=== PATIENT | female | born 1985 | race Caucasian/White ===

== ENCOUNTER 2019-12-29 10:07 | Outpatient (CLI) | payer BC, SELFPAY ==
[2019-12-31 00:52] LABS: Patient Race White; SARS-CoV-2 RNA Undetected (Undetected); SARS-CoV-2 Specimen Source Nasal
== END 2019-12-29 10:27 ==
PROVIDERS: PCP Nurse Practitioner Adult Health; Visit Provider Nurse Practitioner Adult Health
DX: Z11.59 Encounter for screening for other viral diseases (principal); Z20.828 Contact with and (suspected) exposure to other viral communicable diseases
CPT/HCPCS: U0003

== ENCOUNTER 2020-01-02 09:19 | Outpatient (CLI) | payer BC, SELFPAY ==
[2020-01-04 22:31] LABS: Patient Race White; SARS-CoV-2 RNA Undetected (Undetected); SARS-CoV-2 Specimen Source Nasal
== END 2020-01-02 09:39 ==
PROVIDERS: PCP Nurse Practitioner Adult Health; Visit Provider Nurse Practitioner Adult Health
DX: Z11.59 Encounter for screening for other viral diseases (principal)
CPT/HCPCS: U0003

== ENCOUNTER 2020-02-27 01:34 | Outpatient (CLI) | payer BC, SELFPAY ==
[2020-02-27 09:05] LABS: HCT 39.3 % (36.0-46.0); HGB 13.3 g/dL (11.2-15.7); MCH 31.1 pg (27.0-33.0); MCHC 33.8 % (32.0-36.0); MCV 91.8 fL (80-95); MPV 10.4 fL (8.0-11.0); Platelet Count 246 10^3/uL (130-400); RBC 4.28 10^6/uL (3.93-5.22); RDW 11.3 % (11.7-14.6); RDW-SD 38.2 fL; WBC 5.81 10^3/uL (4.4-10.8)
[2020-02-27 10:01] LABS: Anion Gap 8.4 mmol/L (3-11); BUN 10 mg/dL (7-18); CO2 27.6 mmol/L (21.0-32.0); CREATININE 0.72 mg/dL (0.55-1.02); Calcium 8.5 mg/dL (8.5-10.1); Calculated LDL 119 mg/dL (<100); Chloride 103 mmol/L (98-107); Cholesterol 203 mg/dL (<200); Glucose 76 mg/dL (74-106); HDL Cholesterol 53 mg/dL (40-60); Potassium 3.8 mmol/L (3.5-5.1); Sodium 139 mmol/L (136-145); Triglyceride 157 mg/dL (<150)
[2020-03-01 13:21] LABS: IgA 274 mg/dL (85-499); Interpretation (See Note)
== END 2020-02-27 01:54 ==
PROVIDERS: PCP Nurse Practitioner Adult Health; Visit Provider Nurse Practitioner Adult Health
DX: K62.5 Hemorrhage of anus and rectum (principal); Z13.220 Encounter for screening for lipoid disorders; Z12.11 Encounter for screening for malignant neoplasm of colon
CPT/HCPCS: 36415; 80048; 80061; 82784; 83516; 85027

== ENCOUNTER 2020-07-19 09:02 | Outpatient (REF) | payer BC, SELFPAY ==
--- NOTE | 2020-07-19 09:00 | PAPFT_PTH ---
PATIENT: Natali Chou LOC: N U#:[id number] AGE/SX: 35/F ROOM: RE07/19/[address]: ROSSY Reyes : 1985 BED: DIS: 07/19/2020 SPEC #: [id number] RECD: 07/19/20 12:36 STATUS: GIOVANNI REBessy #: [id number] JAMI: 07/19/20 09:[address]: Yolette Hussein DEPT: [facility] Cytology RECD BY: Stephanie Jeffrey ENTERED: 07/19/20 12:36 SP TYPE: PAPFT ÓSCAR DR: Maine Hunter APRN Tissues: 1 - CX/ENDOCX FOR PAP SMEARS Procedures: PAP THIN PREP/UVM Screening HPV DNA PROBE Comments: [id number]
== END 2020-07-19 09:03 | disposition home or self-care (01) ==
LOC: LBN 09:02
PROVIDERS: PCP Nurse Practitioner Adult Health; Visit Provider Nurse Practitioner Family
DX: Z12.4 Encounter for screening for malignant neoplasm of cervix (principal); Z11.51 Encounter for screening for human papillomavirus (HPV)
CPT/HCPCS: 88142; 87624

== ENCOUNTER 2022-07-25 03:30 | Outpatient (CLI) | payer BC, SELFPAY ==
[2022-07-25 13:12] LABS: Abs Immature Grans 0.01 10^3/uL (0.0-0.06); Absolute Basophil Count 0.05 10^3/uL (0.0-0.2); Absolute Lymphocyte Count 2.35 10^3/uL (1.2-3.4); Absolute Monocyte Count 0.44 10^3/uL (0.1-0.8); Absolute Neutrophil Count 3.28 10^3/uL (1.2-6.7); Basophils % 0.8; Eosinophils % 1.6; HCT 39.9 % (36.0-46.0); HGB 13.6 g/dL (11.2-15.7); Immature Grans % 0.2; Lymphocytes % 37.7; MCH 30.8 pg (27.0-33.0); MCHC 34.1 % (32.0-36.0); MCV 91 fL (80-95); MPV 10.5 fL (8.0-11.0); Monocytes % 7.1; Neutrophils % 52.6; Platelet Count 305 10^3/uL (130-400); RBC 4.41 10^6/uL (3.93-5.22); RDW 11.6 % (11.7-14.6); RDW-SD 38.6 fL; WBC 6.23 10^3/uL (4.4-10.8)
[2022-07-25 13:43] LABS: ALT 23 U/L (14-59); AST 16 U/L (15-37); Albumin 3.7 g/dL (3.4-5.0); Alkaline Phosphatase 81 U/L (46-116); Anion Gap 8.6 mmol/L (3-11); BUN 10 mg/dL (7-18); Bilirubin, Total 0.4 mg/dL (0.2-1.0); CO2 26.4 mmol/L (21.0-32.0); CREATININE 0.9 mg/dL (0.55-1.02); Chloride 105 mmol/L (98-107); Estimated GFR 84.44 (mL/min/1.73m2); Glucose 79 mg/dL (74-106); Potassium 4.5 mmol/L (3.5-5.1); Sodium 140 mmol/L (136-145)
== END 2022-07-25 03:31 | disposition home or self-care (01) ==
LOC: LBO 03:30
PROVIDERS: PCP Nurse Practitioner Adult Health; Referring Provider Nurse Practitioner Adult Health; Visit Provider Nurse Practitioner Adult Health
DX: K62.5 Hemorrhage of anus and rectum (principal)
CPT/HCPCS: 36415; 80053; 85025

== ENCOUNTER 2022-08-21 08:31 | Day surgery (SDC) | payer BC, SELFPAY ==
--- NOTE | 2022-08-20 13:58 | W.PM.DSUDISC ---
Date of service: 08/21/22 Time of Service: 10:16 Discharge Plan Disposition Patient Disposition: Home Condition: Good Discharge Details Reason For Visit: colonoscopy Attending Provider: Everette Riddle Primary Care Provider: Maine Hunter Home Meds and New Rx's Prescriptions: Continued levonorgestrel-ethinyl estrad [Kurvelo (28)] 0.15-0.03 mg tablet See Rx Instructions .ROUTE .COMPLEX Qty: 84 3RF Dose Instruction: TAKE 1 TABLET BY MOUTH DAILY Rx Instructions: TAKE 1 TABLET BY MOUTH DAILY Daily Multiple 1 EACH tablet 1 ea PO DAILY Discontinued bisacodyl [Dulcolax (bisacodyl)] 5 mg tablet,delayed release (DR/EC) 5 mg PO ONCE Qty: 4 0RF Rx Instructions: Colonoscopy Bowel Prep- Per Instructions polyethylene glycol 3350 17 gram/dose powder 238 g PO ONCE Qty: 238 0RF Rx Instructions: Colonoscopy Bowel Prep- Per Instructions Discharge Instructions Instructions: Hemorrhoids (GEN) Additional Instructions: Natali, we were able to complete your colonoscopy today without any difficulty at all. The quality of your prep was excellent. You have very mild internal hemorrhoids at this point, mostly involving the right posterior column. At this point, I do not think that banding of these will be beneficial. As you probably already know, symptomatic hemorrhoids can come and go with time. If you start to experience more bleeding, please let me know, and we can attempt banding again at that point. I provided some general information here regarding hemorrhoid disease, and some basic strategies in terms of taking care of it. Maintaining a diet that is rich in fiber, and staying well-hydrated are probably the best 2 strategies. The goal is to have soft bulky bowel movements, and avoid prolonged times on the toilet. Like we talked about before the procedure, I also performed random biopsies along the length of your large intestine to rule out other sources of colonic bleeding. We will take a week or 2 for them to get me the results, and I will be in touch at that point. 1. If tolerated, consume a soft, low fiber diet for 1-2 days. 2[address] Do not drive, drink alcohol, operate machinery, make critical decisions, or do activities that require coordination or balance for 24 hours. 3. Because air was put into your colon during the procedure, expelling air from your rectum (passing gas or farting) is normal. 4. You may not have a bowel movement for 1-3 days because of the colonoscopy prep. This is normal. 5. Go directly to the emergency room if you notice any of the following: Develop chills (warm to touch), or if you have a thermometer and your temperature is above 101 Difficulty breathing or difficultly swallowing Persistent vomiting Severe abdominal pain, other than gas cramps Severe chest pain Black, tarry stools Any bleeding ? exceeding one tablespoon 6. Call your physician if the site where your intravenous was started becomes red, swollen, painful, and warm to touch. 7. Your physician has reviewed your pre-procedure medications. Please continue to take those medications as previously ordered. You will be given specific information/education regarding any changes to your medications before leaving. Stand Alone Forms: Anesthesia Discharge InstMichelle Swanson (DSU) Activity:: Activity as Tolerated Diet:: As Tolerated Discharge Orders Discharge Orders: Discharge Order (Routine); Ordered 08/20/22 Ordered By: Everette Riddle DS: Diagnosis Discharge Diagnosis (1) Bright red blood per rectum: Status: Acute Asessment and Plan: Minimal internal hemorrhoids at this point, that are not amenable to banding. Diagnostic colonoscopy otherwise grossly negative. Biopsies obtained.
--- NOTE | 2022-08-20 14:00 | W.COLOREPORT ---
Date of service: 08/21/22 Time of Service: 10:20 Colonoscopy Report Date of procedure: 08/21/22 Pre-op diagnosis general: Diagnostic colonoscopy Post-op diagnosis procedure note: other (Grade 1 internal hemorrhoids) Procedure: Colonoscopy Surgeon: Everette Riddle Anesthesia Type: General:No Airway Estimated blood loss (mL): 0 Pathology: other (Random biopsies of the colon and rectum) Complications: None Disposition: same day Indications: aNtali is a 37 year old woman whith several years of hematochezia Prep: Miralax/Dulcolax Procedure Start Time: 09:41 Procedure End Time: 09:56 Retraction Time: 9 Findings: Grade 1 internal hemorrhoids of the right posterior column Procedure Description: After the induction of monitored anesthetic care, and with the patient in left lateral decubitus position, I began by performing an external anorectal exam.? Perineum and skin were normal, as was the anal verge.? This was normal.? Next, I performed a digital rectal exam.? I did not appreciate any abnormal findings.? Next, I advanced a colonoscope into the rectal vault.? I performed retroflexion.? There is a small internal hemorrhoid in the right posterior column.? Using insufflation, I then advanced the colonoscope beyond the rectal folds and into the sigmoid colon before advancing towards the cecum.? The quality of the prep was excellent.? The scope was noted to be in the cecum by identification of the ileocecal valve and appendiceal orifice.? I then began withdrawing the colonoscope using repeated irrigation as necessary for full evaluation of the colonic mucosa. ?Once the scope was withdrawn to the level of the rectum, great care was taken to examine portions of the rectal folds.? I did perform random biopsies of the cecum, ascending transverse descending and sigmoid colons, as well as the rectum to rule out microscopic colitis. I saw no evidence of pathology that would support a diagnosis of Crohn's disease or ulcerative colitis. Finally, the scope was withdrawn. Next, using a fiberoptic lit anoscope, I examined the internal hemorrhoid columns once again. As mentioned above, there was really minimal internal hemorrhoid disease at this point. There was one small hemorrhoid in the right posterior column. I do not think this was a good candidate for hemorrhoid banding. I removed the anoscope and the patient was brought to the same-day surgery recovery unit as the anesthetic wore off. ?The findings and instructions were shared with the patient prior to discharge.
[2022-08-21 08:43] VITALS: BP 128/87; PULSE 105; RESP 17; TEMP 36.9; O2SAT 96
[2022-08-21] MEDS: Lactated Ringers 1,000 ML 80 ML IV (09:00)
--- NOTE | 2022-08-21 09:15 | ANES.PREOP_ITS ---
General Info Date of Service Date Performed: 08/21/22 Height: 5 ft 3 in Weight: 83.1 kg Body Mass Index (BMI): 32.4 Surgical Procedure: Operation Date: 08/21/22 10:10 Proposed Procedure Side Surgeon p Hemorrhoid Banding Everette Riddle MD s Colonoscopy Everette Riddle MD Actual Procedure Side Surgeon p Hemorrhoid Banding Everette Riddle MD s Colonoscopy Not Applicable Everette Riddle MD Pre-Op Diagnosis Post-Op Diagnosis colonoscopy Meds Allergies and Home Medications Allergies Allergy/AdvReac Type Severity Reaction Status Date / Time No Known Allergies Allergy Verified 08/21/22 08:48 Home Medication Medication Instructions Recorded multivitamin-ferrous 1 ea PO DAILY 02/03/14 fumarate-folic acid 18 mg-400 mcg tablet (Daily Multiple) levonorgestrel 0.15 mg-ethinyl See Rx Instructions .Route 08/01/22 estradiol 0.03 mg tablet (Kurvelo .COMPLEX #84 tabs (28)) Current Visit Medications: Current Medications Generic Name Dose Route Start Last Admin Trade Name Freq PRN Reason Stop Dose Admin Hyoscyamine Sulfate 0.125 mg 08/20/22 14:03 Hyoscyamine 0.125 Mg Sl/Oral/Chew SL 09/19/22 14:02 DIRECTED PRN Ringer's Solution 1,000 mls @ 80 mls/hr 08/21/22 06:00 08/21/22 09:00 IV 09/17/22 23:59 80 mls/hr INFUSION ABDOULAYE Administration IV Miscellaneous Supplies 1 each 08/21/22 06:00 Iv Access IV 09/17/22 23:59 DIRECTED ABDOULAYE Ondansetron HCl 4 mg 08/20/22 14:03 Ondansetron 4 Mg/2 Ml Vial IVP 09/19/22 14:02 Q4H PRN PRN Nausea / Vomiting Sodium Chloride 0 ml 08/21/22 06:00 Normal Saline Flush 10 Ml Syr IV 09/17/22 23:59 PRN PRN Sodium Chloride 0 ml 08/21/22 06:00 Normal Saline 10 Ml Vial IJ 09/17/22 23:59 DIRECTED PRN Sterile Water 0 ml 08/21/22 06:00 Water,Injection,Sterile 10 Ml Vial IJ 09/17/22 23:59 DIRECTED PRN PFSH Active Problems Active Problems: Problem Status Onset Code Screen for colon cancer Z12.11 Contraception 05/18/17 Z30.9 JAVON (obstructive sleep apnea) G47.33 Bright red blood per rectum ~2019 K62.5 Medical History Medical History History of pertussis 1999 Left hip pain PT referral 02/2020 Snoring Surgical History Surgical History History of adenoidectomy History of wisdom tooth extraction S/P LASIK surgery of both eyes (05/26/21) Tobacco Smoking/Tobacco Use Status: Never Passive smoking exposure: No Second hand exposure: No Alcohol Alcohol Intake: current Alcohol intake frequency: a few times a month Alcohol type: other Substance Use Substance use: Never Substance use type: does not use Prental History History 1 Para 1 Hx # Term Pregnancies Multiple births Hx # Pregnancies Ectopic pregnancies AB induced Hx Number of Living Children AB spontaneous Vital Signs and Lab Results Vital Signs Most Recent Vital Signs in EMR: Most Recent Vital Signs Temp Pulse Resp BP Pulse Ox 36.9 C 105 H 17 128/87 96 08/21/22 08:43 08/21/22 08:43 08/21/22 08:43 08/21/22 08:43 08/21/22 08:43 Point of Care Results Point of Care Results: POC- Test(urine) Negative 08/21/22 08:43 Lab Results Blood Type / Crossmatch: No Data to Display Complete Blood Count: White Blood Count 6.23 10^3/uL (4.4-10.8) 07/25/22 12:40 Red Blood Count 4.41 10^6/uL (3.93-5.22) 07/25/22 12:40 Hemoglobin 13.6 g/dL (11.2-15.7) 07/25/22 12:40 Hematocrit 39.9 % (36.0-46.0) 07/25/22 12:40 Platelet Count 305 10^3/uL (130-400) 07/25/22 12:40 Complete Metabolic Panel: Sodium 140 mmol/L (136-145) 07/25/22 12:40 Potassium 4.5 mmol/L (3.5-5.1) 07/25/22 12:40 Chloride 105 mmol/L (98-107) 07/25/22 12:40 Carbon Dioxide 26.4 mmol/L (21.0-32.0) 07/25/22 12:40 BUN 10 mg/dL (7-18) 07/25/22 12:40 Creatinine 0.9 mg/dL (0.55-1.02) 07/25/22 12:40 Est GFR (CKD-EPI 2020) 84.44 (mL/min/1.73m2) 07/25/22 12:40 Calcium 9.0 mg/dL (8.5-10.1) 07/25/22 12:40 Albumin 3.7 g/dL (3.4-5.0) 07/25/22 12:40 Glucose 79 mg/dL (74-106) 07/25/22 12:40 Liver Function Panel: Alanine Aminotransferase (ALT/SGPT) 23 U/L (14-59) 07/25/22 12: 40 Aspartate Amino Transf (AST/SGOT) 16 U/L (15-37) 07/25/22 12:40 Coagulation Panel: No Data to Display Cardiac Panel: No Data to Display Arterial Blood Gas: No Data to Display Venous Blood Gas: No Data to Display Pancreas Panel: No Data to Display Thyroid Panel: No Data to Display Infectious Disease: No Data to Display Blood Cultures: No Data to Display Toxicology Panel: No Data to Display Panel: No Data to Display Anesthesia Assessment and Plan Anesthesia History Personal History: No History of Anesthesia Complications Family History: No Family History of Anesthesia Complications Exercise Tolerance Exercise Tolerance: Metabolic Equivalents>4 Pertinent Negatives Pertinent Negatives: No Symptoms of GERD, No Major Cardiovascular Symptoms or Complaints, No Major Pulmonary Symptoms or Complaints and No History of CVA/TIA Cardiac & Pulmonary Exam Cardiac Exam: Normal S1/S2 Heart Sounds Pulmonary Exam: Clear Bilateral Breath Sounds Implantable Cardiac Device Does patient have a Pacemaker or an ICD?: No Airway Exam Known Difficult Airway: No Mallampati Class: 2 Mouth Opening: Normal (> 3cm) Thyromental Distance: Greater than 3 cm Neck Range of Motion: Full ROM Neck Circumference: Normal Teeth Condition: Normal Dentition ASA Classification ASA Score: ASA 2 Emergency Case?: No NPO Status NPO Status: NPO Clears >2 hours, Solids >8 hours Status Status: Negative HCG Anesthesia Plan Resuscitation Status: Full Code Anesthesia Technique: General Anesthesia Airway Planned: Natural Airway Monitors Used: Standard Monitors
[2022-08-21 09:30] VITALS: BMI 32.4
--- NOTE | 2022-08-21 09:50 | BOWEL_PTH ---
PATIENT: Natali Chou LOC: [facility] U#:[id number] AGE/SX: 37/F ROOM: RE08/21/[address]: Everette Riddle MD : 1985 BED: DIS: 08/21/2022 SPEC #: [id number] RECD: 08/21/22 11:54 STATUS: GIOVANNI RE #: [id number] JAMI: 08/21/22 09:[address]: Everette Riddle DEPT: Surgical Specimen RECD BY: Mireya Castillo ENTERED: 08/21/22 12:00 SP TYPE: Bowel OTHR DR: Maine Hunter, ALYSHA Tissues: 1 - BIOPSY BOWEL Procedures: GROSS AND MICRO LEVEL 4 Comments: [id number]
[2022-08-21 10:04] VITALS: BP 106/75; PULSE 89; RESP 16; TEMP 36.5; O2SAT 96
[2022-08-21 10:35] VITALS: BP 111/81; PULSE 79; RESP 18; TEMP 36.5; O2SAT 100
--- NOTE | 2022-08-21 13:11 | W.ANESPOSTOP ---
Postoperative Evaluation Date, Time and Location Date Performed: 08/21/22 Time Performed: 13:11 Patient Location: Day Surgery Unit Vital Signs Most Recent Imported Vital Signs: Most Recent Vital Signs Temp Pulse Resp BP Pulse Ox 36.5 C 79 18 111/81 100 08/21/22 10:35 08/21/22 10:35 08/21/22 10:35 08/21/22 10:35 08/21/22 10:35 Pain Score Most Recent Pain Score: Most Recent Pain Score Pain Level 0 08/21/22 10:35 Assessment Mental Status: Awake (Alert & Oriented to Patient Baseline) Airway and Respiratory Function: Patent airway with normal (patient baseline) respiratory exam Cardiovascular Function: Hemodynamically Stable Hydration Status: Adequately Hydrated Nausea & Vomiting: No Nausea or Vomiting Pain: Pt. Denies Any Pain Peripheral Nerve Block: Patient did not receive a nerve block
== END 2022-08-21 10:45 | disposition home or self-care (01) ==
PROVIDERS: PCP Nurse Practitioner Adult Health; Visit Provider Surgery
PROC: (CPT 45380; principal; 2022-08-21 10:00)
PROC: 0DJD8ZZ Inspection of Lower Intestinal Tract, Via Natural or Artificial Opening Endoscopic (ICD-10-PCS; CPT 45378; 2022-08-21 10:00)
DX: K62.5 Hemorrhage of anus and rectum (principal); K64.0 First degree hemorrhoids
CPT/HCPCS: 45380; 81025; 88305; J3010

== ENCOUNTER 2024-08-22 00:53 | Outpatient (CLI) | payer OTHER, SELFPAY ==
[2024-08-22 08:12] LABS: HCT 41.7 % (36.0-46.0); HGB 14.2 g/dL (11.2-15.7); MCH 30.7 pg (27.0-33.0); MCHC 34.1 % (32.0-36.0); MCV 90 fL (80-95); MPV 10.0 fL (8.0-11.0); Platelet Count 303 10^3/uL (130-400); RBC 4.62 10^6/uL (3.93-5.22); RDW 11.7 % (11.7-14.6); RDW-SD 38.5 fL; WBC 7.66 10^3/uL (4.4-10.8)
[2024-08-22 09:04] LABS: ALT 31 U/L (14-59); AST 19 U/L (15-37); Albumin 4.1 g/dL (3.4-5.0); Alkaline Phosphatase 83 U/L (46-116); Anion Gap 11.2 mmol/L (3-11); BUN 7 mg/dL (7-18); Bilirubin, Total 0.6 mg/dL (0.2-1.0); CO2 25.8 mmol/L (21.0-32.0); Calcium 8.9 mg/dL (8.5-10.1); Calculated LDL 134 mg/dL (<100); Chloride 102 mmol/L (98-107); Cholesterol 224 mg/dL (<200); Estimated GFR 96.06 (mL/min/1.73m2); Glucose 84 mg/dL (74-106); HDL Cholesterol 45 mg/dL (>or=50); Potassium 3.9 mmol/L (3.5-5.1); Sodium 139 mmol/L (136-145); TSH (W/Ref FT4) 3.51 uIU/mL (0.36-3.74); Total Protein 8.4 g/dL (6.4-8.2); Triglyceride 227 mg/dL (<150)
[2024-08-25 09:40] LABS: HIV-1/2 Ag & Ab Screen Negative (Negative)
[2024-08-25 09:57] LABS: Hepatitis C Ab w Rflx HCV PCR Negative (Negative)
== END 2024-08-22 00:54 | disposition home or self-care (01) ==
LOC: LBO 00:53
PROVIDERS: PCP Nurse Practitioner Adult Health; Referring Provider Nurse Practitioner Adult Health; Visit Provider Nurse Practitioner Adult Health
DX: Z11.4 Encounter for screening for human immunodeficiency virus [HIV] (principal); Z11.59 Encounter for screening for other viral diseases; Z13.1 Encounter for screening for diabetes mellitus; Z13.220 Encounter for screening for lipoid disorders; E78.5 Hyperlipidemia, unspecified; L68.0 Hirsutism
CPT/HCPCS: 36415; 80053; 80061; 85027; 86803; 87389; 84443